=== PATIENT | male | born 1970 | race Caucasian/White ===

== ENCOUNTER 2021-10-24 08:33 | Observation (INO) | payer OTHER ==
[2021-10-24 11:02] LABS: BASO % 0.9 % (0-2.0); EOS % 2.1 % (0-4.5); HEMATOCRIT 36.4 % (35.4-49); LYMPH % 34.8 % (8-40); MCH 29.8 pg (25.7-33.7); MEAN CELL VOLUME 90.1 fl (80-96); MEAN PLT VOLUME 6.9 fl (7.5-11.1); MONO % 8.1 % (3.8-10.2); NEUT % 54.1 % (42.8-82.8); PLATELET COUNT 338 10^3/uL (134-434); RBC 4.04 M/mm3 (4.00-5.60); WHITE BLOOD COUNT 4.4 K/mm3 (4.0-10.0)
[2021-10-24 11:08] LABS: CALCIUM 9.1 mg/dL (8.5-10.1)
[2021-10-24 11:09] LABS: ALBUMIN 3.5 g/dl (3.4-5.0); BLOOD UREA NITROGEN 20.2 mg/dL (7-18); INR 1.08 (0.83-1.09); MAGNESIUM 1.7 mg/dL (1.8-2.4); PROTHROMBIN TIME (PATIENT) 12.4 SEC (9.7-13.0)
[2021-10-24 11:12] LABS: ACTIVATED PTT 30.4 SECONDS (25.2-36.5)
[2021-10-24 11:13] LABS: BILIRUBIN,TOTAL 0.6 mg/dL (0.2-1)
[2021-10-24 11:17] LABS: N-TERMINAL BNP 44.2 pg/ml (5-125)
[2021-10-24 12:32] LABS: PH,URINE 5.5 (5.0-8.0); URINE APPEARANCE CLEAR; URINE BILIRUBIN NEGATIVE (NEGATIVE); URINE COLOR YELLOW; URINE GLUCOSE (UA) NEGATIVE (NEGATIVE); URINE KETONE NEGATIVE (NEGATIVE); URINE LEUK ESTERASE NEGATIVE (NEGATIVE); URINE NITRITE NEGATIVE (NEGATIVE); URINE PROTEIN NEGATIVE (NEGATIVE); URINE UROBILINOGEN 0.2 mg/dL (0.2-1.0)
[2021-10-24] MEDS ORDERED: MAGNESIUM SULF 50% (8.12 MEQ/2 ML-1 GM VIAL) IVPB ONE (16:10)
[2021-10-24] MEDS ORDERED: MAGNESIUM SULFATE IN WATER 2 GM/50 ML IVPB IVPB ONE (16:20)
[2021-10-24] MEDS ORDERED: ALBUTEROL SO4 HFA INHALER IH PRN (17:37)
[2021-10-24] MEDS ORDERED: ONDANSETRON 4 MG/2 ML VIAL IVPUSH PRN (17:38)
[2021-10-24] MEDS ORDERED: ACETAMINOPHEN 325 MG TABLET (FP) PO PRN (17:38)
[2021-10-24 17:58] VITALS: BMI 39.0
[2021-10-24] MEDS ORDERED: ALBUTEROL SO4 0.5 % INH SOLN 2.5 MG/0.5 ML VIAL.NEB. NEB PRN (18:50)
[2021-10-24] MEDS ORDERED: HALOPERIDOL 5 MG TABLET PO SCH (19:00)
[2021-10-24] MEDS: HALOPERIDOL 5 MG TABLET PO SCH (21:52)
[2021-10-24] MEDS: BENZTROPINE MESYLATE 1 MG TABLET PO SCH (21:52)
[2021-10-24] MEDS: OXYBUTYNIN CHLORIDE 5 MG TABLET PO SCH (21:52)
[2021-10-25] MEDS: OXYBUTYNIN CHLORIDE 5 MG TABLET PO SCH ×3 (05:42→21:49)
[2021-10-25 09:09] LABS: BASO % 0.9 % (0-2.0); EOS % 3.1 % (0-4.5); HEMATOCRIT 36.6 % (35.4-49); HEMOGLOBIN 12.6 GM/dL (11.7-16.9); LYMPH % 37.1 % (8-40); MCH 30.8 pg (25.7-33.7); MCHC 34.4 g/dl (32.0-35.9); MEAN CELL VOLUME 89.6 fl (80-96); MEAN PLT VOLUME 6.5 fl (7.5-11.1); MONO % 7.7 % (3.8-10.2); NEUT % 51.2 % (42.8-82.8); PLATELET COUNT 310 10^3/uL (134-434); RBC 4.08 M/mm3 (4.00-5.60); RDW 14.5 % (11.9-15.9); WHITE BLOOD COUNT 4.8 K/mm3 (4.0-10.0)
[2021-10-25 09:12] LABS: CALCIUM 9.1 mg/dL (8.5-10.1)
[2021-10-25 09:13] LABS: ALBUMIN 3.6 g/dl (3.4-5.0); BLOOD UREA NITROGEN 15.8 mg/dL (7-18); MAGNESIUM 1.9 mg/dL (1.8-2.4)
[2021-10-25] MEDS: TAMSULOSIN HCL 0.4 MG CAP PO SCH (09:13)
[2021-10-25] MEDS: ARIPiprazole 15 MG TABLET PO SCH (09:13)
[2021-10-25] MEDS: LOSARTAN POTASSIUM 50 MG TABLET PO SCH (09:13)
[2021-10-25] MEDS: amLODIPine BESYLATE 5 MG TABLET (FP) PO SCH (09:13)
[2021-10-25] MEDS: BENZTROPINE MESYLATE 1 MG TABLET PO SCH ×2 (09:14→21:49)
[2021-10-25 09:16] LABS: CREATININE 0.8 mg/dL (0.55-1.3); PHOSPHOROUS 3.9 mg/dL (2.5-4.9)
[2021-10-25 09:17] LABS: BILIRUBIN,TOTAL 0.6 mg/dL (0.2-1)
[2021-10-25 09:18] LABS: TOT PROT 7.2 g/dl (6.4-8.2)
[2021-10-25] MEDS ORDERED: guaiFENesin/CODEINE 5 ML UNIT-DOSE CUPS PO PRN (11:47)
[2021-10-25] MEDS ORDERED: SODIUM CHLORIDE NASAL SPRAY 44 ML BOTTLE NS PRN (12:00)
[2021-10-25] MEDS ORDERED: ALBUTEROL SO4 0.5 % INH SOLN 2.5 MG/0.5 ML VIAL.NEB. NEB SCH (12:00)
[2021-10-25] MEDS: ALBUTEROL SO4 0.083% IH SOL 2.5 MG/3 ML VIAL.NEB. NEB SCH ×3 (15:13→20:30)
[2021-10-25] MEDS: HALOPERIDOL 5 MG TABLET PO SCH (21:49)
[2021-10-26] MEDS: OXYBUTYNIN CHLORIDE 5 MG TABLET PO SCH ×3 (05:28→21:59)
[2021-10-26] MEDS: ALBUTEROL SO4 0.083% IH SOL 2.5 MG/3 ML VIAL.NEB. NEB SCH ×4 (07:36→19:31)
[2021-10-26] MEDS: amLODIPine BESYLATE 5 MG TABLET (FP) PO SCH (10:07)
[2021-10-26] MEDS: BENZTROPINE MESYLATE 1 MG TABLET PO SCH ×2 (10:07→21:58)
[2021-10-26] MEDS: TAMSULOSIN HCL 0.4 MG CAP PO SCH (10:07)
[2021-10-26] MEDS: LOSARTAN POTASSIUM 50 MG TABLET PO SCH (10:08)
[2021-10-26] MEDS: ARIPiprazole 15 MG TABLET PO SCH (10:08)
[2021-10-26 12:05] LABS: EOS % 2.4 % (0-4.5); HEMATOCRIT 37.8 % (35.4-49); HEMOGLOBIN 12.4 GM/dL (11.7-16.9); MCH 29.7 pg (25.7-33.7); MCHC 32.7 g/dl (32.0-35.9); MEAN CELL VOLUME 90.9 fl (80-96); MEAN PLT VOLUME 7.1 fl (7.5-11.1); MONO % 7.1 % (3.8-10.2); NEUT % 51.5 % (42.8-82.8); PLATELET COUNT 294 10^3/uL (134-434); RBC 4.16 M/mm3 (4.00-5.60); RDW 14.2 % (11.9-15.9); WHITE BLOOD COUNT 4.1 K/mm3 (4.0-10.0)
[2021-10-26 12:33] LABS: ALBUMIN 3.8 g/dl (3.4-5.0); BLOOD UREA NITROGEN 16.7 mg/dL (7-18)
[2021-10-26 12:36] LABS: CREATININE 0.9 mg/dL (0.55-1.3)
[2021-10-26 12:37] LABS: BILIRUBIN,TOTAL 0.5 mg/dL (0.2-1); TOT PROT 7.2 g/dl (6.4-8.2)
[2021-10-26] MEDS: HALOPERIDOL 5 MG TABLET PO SCH (21:59)
[2021-10-27] MEDS: OXYBUTYNIN CHLORIDE 5 MG TABLET PO SCH ×3 (05:35→21:31)
[2021-10-27] MEDS: ALBUTEROL SO4 0.083% IH SOL 2.5 MG/3 ML VIAL.NEB. NEB SCH ×4 (09:01→20:20)
[2021-10-27 09:23] LABS: BASO % 1.1 % (0-2.0); EOS % 2.3 % (0-4.5); HEMATOCRIT 35.8 % (35.4-49); LYMPH % 36.6 % (8-40); MCH 30.2 pg (25.7-33.7); MCHC 33.6 g/dl (32.0-35.9); MEAN CELL VOLUME 89.9 fl (80-96); MEAN PLT VOLUME 7.2 fl (7.5-11.1); MONO % 8.1 % (3.8-10.2); NEUT % 51.9 % (42.8-82.8); PLATELET COUNT 240 10^3/uL (134-434); RBC 3.98 M/mm3 (4.00-5.60); RDW 14.4 % (11.9-15.9); WHITE BLOOD COUNT 4.9 K/mm3 (4.0-10.0)
[2021-10-27 09:36] LABS: BLOOD UREA NITROGEN 15.3 mg/dL (7-18); CALCIUM 8.7 mg/dL (8.5-10.1)
[2021-10-27 09:37] LABS: ALBUMIN 3.4 g/dl (3.4-5.0)
[2021-10-27 09:39] LABS: CREATININE 0.7 mg/dL (0.55-1.3)
[2021-10-27 09:40] LABS: TOT PROT 6.9 g/dl (6.4-8.2)
[2021-10-27] MEDS: ARIPiprazole 15 MG TABLET PO SCH (09:40)
[2021-10-27] MEDS: amLODIPine BESYLATE 5 MG TABLET (FP) PO SCH (09:40)
[2021-10-27] MEDS: TAMSULOSIN HCL 0.4 MG CAP PO SCH (09:40)
[2021-10-27] MEDS: LOSARTAN POTASSIUM 50 MG TABLET PO SCH (09:40)
[2021-10-27 09:41] LABS: BILIRUBIN,TOTAL 0.6 mg/dL (0.2-1)
[2021-10-27] MEDS: BENZTROPINE MESYLATE 1 MG TABLET PO SCH ×2 (09:41→21:31)
[2021-10-27 12:32] LABS: PLATELET ESTIMATE ADEQUATE
[2021-10-27] MEDS: HALOPERIDOL 5 MG TABLET PO SCH (21:31)
[2021-10-28] MEDS: OXYBUTYNIN CHLORIDE 5 MG TABLET PO SCH (05:33)
[2021-10-28 07:56] LABS: ALBUMIN 3.3 g/dl (3.4-5.0); BLOOD UREA NITROGEN 13.6 mg/dL (7-18); CALCIUM 8.4 mg/dL (8.5-10.1)
[2021-10-28 07:57] LABS: BASO % 0.9 % (0-2.0); EOS % 4.3 % (0-4.5); HEMOGLOBIN 11.4 GM/dL (11.7-16.9); LYMPH % 39.9 % (8-40); MCH 30.1 pg (25.7-33.7); MCHC 33.6 g/dl (32.0-35.9); MEAN CELL VOLUME 89.7 fl (80-96); MONO % 9.2 % (3.8-10.2); NEUT % 45.7 % (42.8-82.8); PLATELET COUNT 214 10^3/uL (134-434); RBC 3.79 M/mm3 (4.00-5.60); RDW 13.9 % (11.9-15.9)
[2021-10-28 08:00] LABS: CREATININE 0.8 mg/dL (0.55-1.3)
[2021-10-28 08:02] LABS: BILIRUBIN,TOTAL 0.6 mg/dL (0.2-1); TOT PROT 6.3 g/dl (6.4-8.2)
[2021-10-28] MEDS: ALBUTEROL SO4 0.083% IH SOL 2.5 MG/3 ML VIAL.NEB. NEB SCH ×2 (08:03→11:45)
[2021-10-28] MEDS: ARIPiprazole 15 MG TABLET PO SCH (09:04)
[2021-10-28] MEDS: TAMSULOSIN HCL 0.4 MG CAP PO SCH (09:04)
[2021-10-28] MEDS: amLODIPine BESYLATE 5 MG TABLET (FP) PO SCH (09:04)
[2021-10-28] MEDS: LOSARTAN POTASSIUM 50 MG TABLET PO SCH (09:04)
[2021-10-28] MEDS: BENZTROPINE MESYLATE 1 MG TABLET PO SCH (09:05)
[2021-10-28 10:06] VITALS: BP 114/67; PULSE 69; TEMP 98
== END 2021-10-28 12:49 | disposition home or self-care (01) ==
LOC: JER 08:33 → JERBED 09:50 → J8W 17:13
PROVIDERS: ADMIT Internal Medicine; ATTEND Internal Medicine
PROC: 3E0F7GC Introduction of Other Therapeutic Substance into Respiratory Tract, Via Natural or Artificial Opening (ICD-10-PCS; principal; 2021-10-24)
PROC: 3E033GC Introduction of Other Therapeutic Substance into Peripheral Vein, Percutaneous Approach (ICD-10-PCS; 2021-10-24)
DX: R09.02 Hypoxemia (principal); G47.30 Sleep apnea, unspecified; I10 Essential (primary) hypertension; K21.9 Gastro-esophageal reflux disease without esophagitis; E11.9 Type 2 diabetes mellitus without complications; R61 Generalized hyperhidrosis; R53.1 Weakness; R05.9 Cough, unspecified; E66.9 Obesity, unspecified; Z68.39 Body mass index [BMI] 39.0-39.9, adult; N40.0 Benign prostatic hyperplasia without lower urinary tract symptoms; Z99.81 Dependence on supplemental oxygen; F20.9 Schizophrenia, unspecified; Z29.9 Encounter for prophylactic measures, unspecified
CPT/HCPCS: 36415; 71045-TC-FY; 71275-TC; 76705-TC; 80053; 81003; 82550; 82553; 82728; 82962; 83615; 83735; 83880; 84100; 84443; 84484; 85025; 85610; 85730; 86140; 86359; 86360; 87086; 87804; 93005; 93010; 93306-TC; 94010; 94640; 94660; 94761; 96374; 97116-GP; 97161-GP; 99285-25; C9803; G0378; Q9967; U0003; U0005